=== PATIENT | male | born 1950 | race African-American/Black ===

== ENCOUNTER 2018-05-16 20:36 | Emergency (ER) | payer OTHER ==
[2018-05-16] MEDS ORDERED: Ketorolac INJ* 30 MG/ML 1 ML VIAL IV PUSH ONE (20:52)
--- NOTE | 2018-05-16 21:29 | ED ---
Complex/Multi-Sys Presentation - HPI Summary HPI Summary: This is kristyibe Thong Curtis documenting for attending Dr. Adalid Pathak This patient is a 67 year old M presenting to [facility] brought in by 5 [place] [employer] officers with a chief complaint of diffuse body pain since 05/15/18. He endorses that 05/15/18 he felt palpitations, stiffness in both arms, sharp diffuse body pains. He states that this AM he experienced the same sx, and they increasingly worsened throughout the day. He endorses diffuse CP, leg pain, neck pain, arm pain. Rx ibuprofen 600 mg, 2 (HTN) meds. PMHx stress test last year, went well. He endorses the pain is currently present. I, Dr. Cordoba personally performed the services described in this documentation as scribed in my presence and it is both accurate and complete. - History Of Current Complaint Chief Complaint: EDChestPainROMI Time Seen by Provider: 05/16/18 20:46 Hx Obtained From: Patient Onset/Duration: Sudden Onset, Lasting Days, Still Present, Worse Since - gradual worsening today Timing: Constant Severity Currently: Moderate Severity Initially: Mild Location: Pain At: - everywhere Associated Signs And Symptoms: Positive: Chest Pain - diffuse, Palpitations, Other - neck pain, bilateral arm and leg pain, diffuse all over pain - Allergies/Home Medications Allergies/Adverse Reactions: Allergies Allergy/AdvReac Type Severity Reaction Status Date / Time No Known Allergies Allergy Verified 05/16/18 20:45 PMH/Surg Hx/FS Hx/Imm Hx Cardiovascular History: Reports: Hx Hypertension Sensory History: Denies: Hx Legally Blind, Hx Deafness Opthamlomology History: Denies: Hx Legally Blind EENT History: Denies: Hx Deafness Psychiatric History: Denies: Hx Autism, Hx Schizophrenia Infectious Disease History: No Infectious Disease History: Denies: Traveled Outside the [place] in Last 30 Days - Family History Known Family History: Negative: Cardiac Disease, Hypertension, Diabetes, Other - CA Family History: "Not to my knowledge" - Social History Occupation: Unemployed Lives: Dormitory/Roommates - long-term Alcohol Use: None Hx Substance Use: Yes Substance Use Type: Reports: Heroin Hx Tobacco Use: Yes Smoking Status (MU): Heavy Every Day Tobacco Smoker Review of Systems Negative: Fever Positive: Palpitations, Chest Pain - diffuse Positive: Arthralgia - neck, Myalgia - bilateral arms and legs All Other Systems Reviewed And Are Negative: Yes Physical Exam - Summary Physical Exam Summary: VITAL SIGNS: Reviewed. GENERAL: Patient is a well-developed and nourished male who is lying comfortable in the stretcher. Patient is not in any acute respiratory distress. HEAD AND FACE: No signs of trauma. No ecchymosis, hematomas or skull depressions. No sinus tenderness. EYES: PERRLA, EOMI x 2, No injected conjunctiva, no nystagmus. EARS: Hearing grossly intact. Ear canals and tympanic membranes are within normal limits. MOUTH: Oropharynx within normal limits. NECK: Supple, trachea is midline, no adenopathy, no JVD, no carotid bruit, no c- spine tenderness, neck with full ROM. CHEST: Symmetric, no tenderness at palpation LUNGS: Clear to auscultation bilaterally. No wheezing or crackles. CVS: Regular rate and rhythm, S1 and S2 present, no murmurs or gallops appreciated. ABDOMEN: Soft, non-tender. No signs of distention. No rebound no guarding, and no masses palpated. Bowel sounds are normal. EXTREMITIES: FROM in all major joints, no edema, no cyanosis or clubbing. NEURO: Alert and oriented x 3. No acute neurological deficits. Speech is normal and follows commands. SKIN: Dry and warm Triage Information Reviewed: Yes Vital Signs On Initial Exam: Initial Vitals Temp Pulse Resp BP Pulse Ox 98.2 F 78 16 149/87 98 05/16/18 20:42 05/16/18 20:42 05/16/18 20:42 05/16/18 20:42 05/16/18 20:42 Vital Signs Reviewed: Yes Diagnostics - Vital Signs Vital Signs Temp Pulse Resp BP Pulse Ox 05/16/18 21:19 85 136/86 97 05/16/18 20:42 98.2 F 78 16 149/87 98 - Laboratory Result Diagrams: 05/16/18 21:31 05/16/18 21:31 Lab Statement: Any lab studies that have been ordered have been reviewed, and results considered in the medical decision making process. - Radiology CXR Xray Interpretation: No Acute Changes Radiology Interpretation Completed By: ED Physician - No acute process. - CT CT ABD/Pelvis CT Interpretation Completed By: Radiologist - , 1. No CT findings to correlate with patient's symptomatology. Specifically no obstructing renal or ureteral calculi. 2. Additional incidental findings as described. ED physician has reviewed this radiology report. - EKG 2100 Cardiac Rate: NL - 85 EKG Rhythm: Sinus Rhythm Ectopy: None EKG Interpretation: nl axis, nl interval, J-point elevation. Complex Multi-Symp Course/Dx Course Of Treatment: A 67-year-old M presents to the ED with a CC of diffuse body pain since 05/15/18. (+) palpitations, diffuse CP, bilateral arm and leg pain, neck pain. (-) fever. PMHx HTN. A CXR reveals no acute process. An EKG reveals a sinus rhythm of 85 BPM, nl axis, nl interval, J-point elevation. In the ED course, pt was given toradol. Pt's CT was negative. UA was postive for UTI. I cannot send an rx so I recommened he be given I recommend 500mg of Levaquin for 10 days and Motrin as needed for pain. Pt understands and agrees with this course. - Diagnoses Provider Diagnoses: UTI (urinary tract infection) Discharge - Sign-Out/Discharge Documenting (check all that apply): Patient Departure - Discharge Plan Condition: Stable Disposition: HOME Prescriptions: Ibuprofen TAB* [Motrin TAB* 800 MG] 800 mg PO Q6H PRN #30 tab PRN Reason: Pain Levofloxacin TAB* [Levaquin TAB*] 500 mg PO DAILY #10 tab Patient Education Materials: Urinary Tract Infection in Men (ED) Referrals: No Primary Care Phys,NOPCP [Primary Care Provider] - Additional Instructions: I recommend 500mg of Levaquin for 10 days and Motrin as needed for pain. RETURN TO THE EMERGENCY DEPARTMENT FOR CHANGING OR WORSENING SYMPTOMS - Billing Disposition and Condition Condition: STABLE Disposition: Home
[2018-05-16 21:42] LABS: Hematocrit 37 % (42-52); Hemoglobin 12.3 g/dl (14.0-18.0); Mean Corpuscular HGB Conc 33 g/dl (31-36); Mean Corpuscular Hemoglobin 29 pg (27-31); Mean Corpuscular Volume 88 fL (80-94); Mean Platelet Volume 8.6 um3 (7.4-10.4); Platelet Count 154 10^3/ul (150-450); Red Blood Count 4.19 10^6/ul (4.00-5.40); Red Cell Distribution Width 14 % (10.5-15); White Blood Count 17.6 10^3/ul (3.5-10.8)
[2018-05-16 21:49] LABS: INR 1.39 (0.77-1.02)
[2018-05-16 21:59] LABS: EGFR Non-African American 43.6 (>60)
[2018-05-16 22:08] LABS: Urine Appearance Clear; Urine Blood 2+ (Negative); Urine Color Yellow; Urine Ketones Negative (Negative); Urine Protein 2+(100 mg/dL) (Negative); Urine Red Blood Cell 3+(>10/hpf) (Absent); Urine Specific Gravity 1.012 (1.010-1.030); Urine Urobilinogen Positive (Negative); Urine White Blood Cell 3+(>20/hpf) (Absent)
[2018-05-16 22:12] LABS: ABS Basophils 0 10^3/ul (0-0.2); ABS Eosinophils 0 10^3/ul (0-0.6); ABS Lymphocytes 0.7 10^3/ul (1.0-4.8); ABS Monocytes 1.6 10^3/ul (0-0.8); ABS Neutrophils 15.2 10^3/ul (1.5-7.7); ABS Nucleated RBC 0 10^3/ul; Eosinophil % 0.1 % (0-6); Lymphocyte % 3.7 % (25-47); Nucleated Red Blood Cells % 0
[2018-05-16] MEDS ORDERED: Levofloxacin 500 MG IVPREMIX(* 500 MG/100 ML BAG IVPB ONE (22:12)
--- NOTE | 2018-05-17 00:11 | RAD ---
EXAM: CT Abdomen and Pelvis Without Intravenous Contrast CLINICAL HISTORY: 67 years old, male; Pain; Abdominal pain; Additional info: Kidney stones TECHNIQUE: Axial computed tomography images of the abdomen and pelvis without intravenous contrast. Coronal and sagittal reformatted images were created and reviewed. COMPARISON: No relevant prior studies available. FINDINGS: Lung bases: Normal. No mass. No consolidation. 5 mm calcified nodule in the left lower lobe most consistent with a granuloma. ABDOMEN: Liver: Normal. Normal size. No masses seen on this noncontrast study. Gallbladder and bile ducts: Normal. No radiopaque calculi. No ductal dilation. Pancreas: Normal. No ductal dilation. Spleen: Normal. No splenomegaly. Adrenals: Normal. No mass. Kidneys and ureters: Bilateral renal cysts although incompletely evaluated on this noncontrast study. No calculi or pelvocaliectasis. Stomach and bowel: Incompletely distended grossly normal stomach. Normal caliber small bowel. No colonic masses or segmental wall thickening. There is a moderate to large amount retained stool. PELVIS: Appendix: Nonvisualized appendix with no secondary findings to suggest appendicitis. Bladder: Thin-walled bladder with no focal nodularity, perivesicular stranding, or calcifications. No stones. Reproductive: Normal sized prostate. Normal seminal vesicles. ABDOMEN and PELVIS: Intraperitoneal space: Normal. No pneumoperitoneum. No ascities. Bones/joints: No fractures. No suspicious bone lesions. Soft tissues: Normal. No hernias. Vasculature: Normal. No abdominal aortic aneurysm. Lymph nodes: Normal. No enlarged lymph nodes. IMPRESSION: 1. No CT findings to correlate with patient's symptomatology. Specifically no obstructing renal or ureteral calculi. 2. Additional incidental findings as described.
[2018-05-17 00:59] VITALS: BP 126/88
--- NOTE | 2018-05-17 07:24 | RAD ---
INDICATION: Chest pain. COMPARISON: There are no prior studies available for comparison. TECHNIQUE: A portable view of the chest was obtained. FINDINGS: Cardiac and mediastinal contours appear to be within normal limits. The lungs are clear. No pleural effusion is seen. IMPRESSION: NO EVIDENCE FOR ACUTE DISEASE.. R0
--- NOTE | 2018-05-17 20:28 | PN ---
Progress Note - Progress Note Date of Service: 05/17/18 Note: call from lab preliminary blood culture grew gram neg bacilli. patient placed on levaquin at discharge which should cover for such. will wait for final culture.
== END 2018-05-17 01:08 | disposition home or self-care (01) ==
LOC: ED 20:36
DX: N39.0 Urinary tract infection, site not specified (principal); R07.9 Chest pain, unspecified; R00.2 Palpitations; M54.2 Cervicalgia; F17.210 Nicotine dependence, cigarettes, uncomplicated
CPT/HCPCS: 36415; 71045; 74176; 80053; 81003; 81015; 82550; 83735; 84484; 85025; 85610; 85730; 87040; 87077; 87086; 87186; 93005; 99284; J1885; J1956